=== PATIENT | female | born 1970 | race Caucasian/White ===

== ENCOUNTER 2016-08-06 08:06 | Emergency (ER) | payer MEDICAID ==
[~2016-08-06] VITALS: Ht 167.6 cm; Wt 72.6 kg
[2016-08-06 08:12] VITALS: BP 130/76
--- NOTE | 2016-08-06 08:15 | NUR ---
PT AMBULATED TO BED 8 AT THIS TIME.
--- NOTE | 2016-08-06 08:18 | NUR ---
46F BIB SELF C/O THROBBING, EPIGASTRIC PAIN, RADIATES TO MID-LOWER ABDOMEN, 8/10 W/ 1 EPISODE OF VOMITING X YESTERDAY; ABDOMEN SOFT, NON-TENDER, ACTIVE BOWEL SOUNDS X 4 QUADRANTS; PT DENIES MEDICAL HX; A&OX4, PERRLA, BL LUNG SOUNDS CLEAR, RR EVEN/UNLABORED, SKIN IS WARM/DRY/INTACT AT THIS TIME; PT RESTING IN BED W/ HOB ELEVATED AND IN LOWEST POSITION; POSITIONED FOR COMFORT; ER MD MADE AWARE OF STATUS. WILL CONTINUE TO MONITOR.
--- NOTE | 2016-08-06 08:21 | NUR ---
Dr. Lobato evaluating patient at bedside.
[2016-08-06] MEDS ORDERED: BELLADONNA/PHENOBARBITAL 1 TAB PO ONE (08:25)
[2016-08-06] MEDS ORDERED: LIDOCAINE VISCOUS 2% 20 ML UDC PO ONE (08:25)
[2016-08-06] MEDS ORDERED: ONDANSETRON 4 MG/2 ML VIAL IVP ONE (08:25)
[2016-08-06] MEDS ORDERED: ALUMINUM HYD/MAG/SIMETHICONE 30 ML UDC PO ONE (08:25)
[2016-08-06] MEDS ORDERED: DICYCLOMINE HCL LIQUID 10 MG/5 ML UDC PO ONE (08:30)
[2016-08-06 08:54] LABS: BASOPHILS # (AUTO) 0.1 K/uL (0.00-0.22); BASOPHILS % (AUTO) 1.2 % (0.0-2.0); EOSINOPHILS # (AUTO) 0.2 K/uL (0-0.4); EOSINOPHILS % (AUTO) 2.2 % (0.0-4.0); HEMATOCRIT 41.2 % (36-48); HEMOGLOBIN 13.8 g/dL (12.0-16.0); LYMPHOCYTES % (AUTO) 12.2 % (20.5-51.1); MEAN CORPUSCULAR HEMOGLOBIN 31 pg (27-31); MEAN CORPUSCULAR HGB CONC 34 g/dL (33-37); MEAN CORPUSCULAR VOLUME 91 fL (80-94); MONOCYTES # (AUTO) 0.6 K/uL (0.8-1.0); MONOCYTES % (AUTO) 6.7 % (1.7-9.3); NEUTROPHILS # (AUTO) 6.5 K/uL (1.8-7.7); NEUTROPHILS % (AUTO) 77.7 % (42.2-75.2); PLATELET COUNT (AUTO) 228 K/uL (140-450); RED BLOOD CELL COUNT(AUTO) 4.54 MIL/uL (4.20-5.40); RED CELL DISTRIBUTION WIDTH 12.1 % (11.6-13.7); WHITE BLOOD COUNT (AUTO) 8.4 K/uL (4.8-10.8)
[2016-08-06 09:02] LABS: APPEARANCE,URINE HAZY (CLEAR); BILIRUBIN,URINE NEGATIVE (NEGATIVE); BLOOD, URINE 3+ (NEGATIVE); COLOR,URINE YELLOW (YELLOW); LEUKOCYTE ESTERASE ,URINE 1+ (NEGATIVE); NITRITE, URINE NEGATIVE (NEGATIVE); PH,URINE 5.5 (5.0-9.0); PROTEIN,URINE NEGATIVE (NEGATIVE); UGLUCOSE NEGATIVE (NEGATIVE); UROBILINOGEN,URINE 0.2 EU/dL (0.2 - 1)
[2016-08-06 09:05] LABS: ANION GAP 11.9 (8-16); CALCIUM 8.5 mg/dL (8.5-10.1); CARBON DIOXIDE 25.7 mmol/L (21-32); CREATININE 0.7 mg/dL (0.6-1.3); POTASSIUM 3.6 mmol/L (3.5-5.1)
[2016-08-06 09:11] LABS: ALBUMIN 3.6 g/dL (3.4-5.0); TOTAL BILIRUBIN 0.6 mg/dL (0.0-1.0); TOTAL PROTEIN, SERUM 7.1 g/dL (6.4-8.2)
[2016-08-06 09:17] LABS: BACTERIA,URINE 1+ /HPF (None Seen); MUCUS,URINE 3+ /LPF (None Seen)
--- NOTE | 2016-08-06 10:00 | NUR ---
IV removed, catheter intact and site benign. Applied folded 4x4 gauze and tape to stop bleeding. PT TOELRATED PROCEDURE WELL.
[2016-08-06 10:12] VITALS: BP 117/70
--- NOTE | 2016-08-06 10:12 | NUR ---
Patient discharged with v/s stable. Written and verbal after care instructions given and explained. Patient alert, oriented and verbalized understanding of instructions. Ambulatory with steady gait. All questions addressed prior to discharge. ID band removed. Patient advised to follow up with PMD. Rx of CIPROFLOXACIN HYDROCHLORIDE 500MG TAB & PRILOSEC 20MG given. Patient educated on indication of medication including possible reaction and side effects. Opportunity to ask questions provided and answered.
== END 2016-08-06 10:12 | disposition home or self-care (01) ==
LOC: MED 08:06
DX: K29.70 Gastritis, unspecified, without bleeding (principal); N39.0 Urinary tract infection, site not specified; Z90.89 Acquired absence of other organs
CPT/HCPCS: 36415; 80053; 81001; 81025; 82150; 83690; 84703; 85025; 87086; 93005; 96374; 99285; J2405

== ENCOUNTER 2022-08-31 00:19 | Emergency (ER) | payer MEDICAID, OTHER ==
[~2022-08-31] VITALS: Ht 167.6 cm; Wt 72.6 kg
[2022-08-31 00:20] VITALS: BP 137/92
--- NOTE | 2022-08-31 00:23 | NUR ---
TO LOBBY A/W BED AMBULATORY
--- NOTE | 2022-08-31 01:20 | NUR ---
PT TO BED#1
--- NOTE | 2022-08-31 01:25 | NUR ---
PT AMBULATORY FROM HOME WITH C/O EPIGASTRIC PAIN ASSOCIATED WITH N/V AND DIARRHEA X THIS AM. 12/27 PAIN WHICH IS CONSTANT. PT UNABLE TO KEEP ANY FOOD/LIQUID DOWN. DENIES ANY PMH NKDA
[2022-08-31 01:31] LABS: BASOPHILS # (AUTO) 0.1 K/uL (0.00-0.22); EOSINOPHILS # (AUTO) 0.1 K/uL (0-0.4); EOSINOPHILS % (AUTO) 0.6 % (0.0-4.0); HEMATOCRIT 39.3 % (36-48); HEMOGLOBIN 13.5 g/dL (12.0-16.0); LYMPHOCYTES # (AUTO) 1.8 K/uL (2.5-16.5); LYMPHOCYTES % (AUTO) 12.1 % (20.5-51.1); MEAN CORPUSCULAR HEMOGLOBIN 31 pg (27-31); MEAN CORPUSCULAR HGB CONC 34 g/dL (33-37); MEAN CORPUSCULAR VOLUME 90.8 fL (80-94); MONOCYTES # (AUTO) 1.1 K/uL (0.8-1.0); MONOCYTES % (AUTO) 7.4 % (1.7-9.3); NEUTROPHILS % (AUTO) 78.9 % (42.2-75.2); PLATELET COUNT (AUTO) 334 K/uL (140-450); RED BLOOD CELL COUNT(AUTO) 4.32 MIL/uL (4.20-5.40); WHITE BLOOD COUNT (AUTO) 15.2 K/uL (4.8-10.8)
[2022-08-31 01:48] LABS: ALBUMIN 3.9 g/dL (3.4-5.0); CARBON DIOXIDE 27.1 mmol/L (21-32); CREATININE 0.7 mg/dL (0.6-1.3); POTASSIUM 4.1 mmol/L (3.5-5.1); TOTAL BILIRUBIN 0.7 mg/dL (0.0-1.0)
[2022-08-31] MEDS ORDERED: MORPHINE SULFATE 2 MG/ML SYR IVP STA (02:06)
[2022-08-31] MEDS ORDERED: NACL 0.9% 1,000 ML IV ONE ×2 (02:10→03:10)
[2022-08-31] MEDS ORDERED: FAMOTIDINE 20 MG/2 ML VIAL IVP ONE (02:10)
[2022-08-31] MEDS ORDERED: ONDANSETRON 4 MG/2 ML VIAL IVP ONE ×2 (02:10→03:25)
--- NOTE | 2022-08-31 02:12 | NUR ---
UA collected and sent to lab
[2022-08-31 02:18] LABS: APPEARANCE,URINE CLEAR (CLEAR); BILIRUBIN,URINE NEGATIVE (NEGATIVE); BLOOD, URINE 3+ (NEGATIVE); COLOR,URINE YELLOW (YELLOW); LEUKOCYTE ESTERASE ,URINE NEGATIVE (NEGATIVE); NITRITE, URINE NEGATIVE (NEGATIVE); PH,URINE 7.5 (5.0-9.0); UGLUCOSE NEGATIVE (NEGATIVE)
[2022-08-31 02:26] LABS: RBC,URINE TOO NUMEROUS TO COUN /HPF (0-5)
[2022-08-31] MEDS ORDERED: KETOROLAC 15 MG/ML VIAL IVP ONE (03:10)
[2022-08-31] MEDS ORDERED: ALUMINUM HYD/MAG/SIMETHICONE 30 ML UDC PO ONE (03:25)
[2022-08-31] MEDS ORDERED: AMOX1TAB8 PO (06:10)
[2022-08-31] MEDS ORDERED: FAMO-90 PO (06:10)
[2022-08-31] MEDS ORDERED: MAG355OR2 PO (06:10)
[2022-08-31] MEDS ORDERED: ONDA-188 PO (06:10)
[2022-08-31] MEDS ORDERED: ACET-8905 PO (06:13)
--- NOTE | 2022-08-31 06:43 | NUR ---
Patient discharged with v/s stable. Written and verbal after care instructions given and explained. Patient alert, oriented and verbalized understanding of instructions. Ambulatory with steady gait. All questions addressed prior to discharge. ID band removed. Patient advised to follow up with PMD. Rx of hydrocodone, amoxicillin, pepcid, mag hydrox, and zofran given. Opportunity to ask questions provided and answered.
== END 2022-08-31 06:43 | disposition home or self-care (01) ==
LOC: MED 00:19
DX: K76.0 Fatty (change of) liver, not elsewhere classified (principal); K29.70 Gastritis, unspecified, without bleeding; N28.1 Cyst of kidney, acquired; Z79.899 Other long term (current) drug therapy
CPT/HCPCS: 36415; 74176; 80053; 81001; 83605; 83690; 85025; 87040; 87086; 96361; 96374; 96375; 96376; 99285; J1885; J2270; J2405; J3490; J7030

== ENCOUNTER 2023-12-27 10:24 | Emergency (ER) | payer OTHER ==
[~2023-12-27] VITALS: Ht 167.6 cm; Wt 74.2 kg
[~2023-12-27 10:24] MED LIST: ACET-8905 PO; AMOX1TAB8 PO; FAMO-90 PO; MAG355OR2 PO; ONDA-188 PO
[2023-12-27 10:59] VITALS: BP 104/66; PULSE 75; RESP 16; TEMP 98.1; O2SAT 98
[2023-12-27] MEDS: LIDOCAINE MPF 1% 10 MG/ML VIAL INJ ONE (12:36)
[2023-12-27] MEDS ORDERED: IBUP-1842 PO (13:10)
[2023-12-27] MEDS ORDERED: BACI-418 TP (13:10)
== END 2023-12-27 13:52 | disposition home or self-care (01) ==
LOC: MED 10:24
DX: S61.215A Laceration without foreign body of left ring finger without damage to nail, initial encounter (principal); Z79.899 Other long term (current) drug therapy; W26.8XXA Contact with other sharp object(s), not elsewhere classified, initial encounter; Y93.89 Activity, other specified; Y92.89 Other specified places as the place of occurrence of the external cause; Y99.8 Other external cause status
CPT/HCPCS: 12001; 90471; 90715; 99283; J2003